=== PATIENT | male | born 1970 | race Caucasian/White ===

== ENCOUNTER → 2018-10-31 | Outpatient (CLI) | payer BC ==
--- NOTE | 2018-10-31 17:51 | Diagnostic Imaging Report ---
PROCEDURE: MRI right joint upper extremity without contrast. TECHNIQUE: Multiplanar, multisequence [id number] MRI of the right upper extremity was accomplished. INDICATION: Decreased range of motion. COMPARISON: There are no prior studies available for comparison. FINDINGS: On the T2 fat-saturated coronal series, there is evidence of a tear involving the anterior third of the attachment of the rotator cuff. The supraspinatus muscle in this area is slightly bunched but not fully retracted. There is some increased signal in the soft tissues adjacent to the rotator cuff indicating that there is an element of mild inflammation present. There is hypertrophy of the acromioclavicular joint, and this does result in narrowing of the outlet for the supraspinatus muscle. The labrum is thinned posteriorly and most likely slightly torn on a degenerative basis. The biceps tendon and the subscapularis tendon are intact. There is no abnormal signal arising from the osseous structures to suggest bone edema or a fracture. There is no sign of a joint effusion. IMPRESSION: 1. There is a tear involving the anterior third at the insertion of the rotator cuff. The supraspinatus muscle in this area is bunched, but the supraspinatus muscle itself is not retracted. 2. There is hypertrophy of the acromioclavicular joint, and this does result in narrowing of the outlet for the supraspinatus muscle. 3. The labrum is thinned and probably slightly torn on a degenerative basis. 4. There is no acute bony abnormality noted. Dictated by: Dictated on workstation # [id number]
== END ==
LOC: EDBD 14:45 → RAD 15:00
PROVIDERS: ATTEND Orthopaedic Surgery
DX: S46.011A Strain of muscle(s) and tendon(s) of the rotator cuff of right shoulder, initial encounter (principal); M19.011 Primary osteoarthritis, right shoulder; M62.89 Other specified disorders of muscle; M25.811 Other specified joint disorders, right shoulder
CPT/HCPCS: 73221

== ENCOUNTER → 2020-10-01 | Outpatient (CLI) | payer BC | LOC: LABNPT 06:40 | PROVIDERS: ATTEND Orthopaedic Surgery | DX: Z01.812 Encounter for preprocedural laboratory examination (principal); Z20.822 Contact with and (suspected) exposure to COVID-19 | CPT/HCPCS: 87635 ==